=== PATIENT | male | born 1960 | race Two or more races ===

== ENCOUNTER 2018-08-25 16:11 | Emergency (ER) | payer SELFPAY ==
[~2018-08-25] VITALS: Ht 172.7 cm; Wt 72.6 kg
[2018-08-25 16:28] VITALS: BP 140/88
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
[2018-08-25] MEDS ORDERED: ROBAXIN-750750 MG PO (17:02)
[2018-08-25] MEDS ORDERED: LIDODERM700 M1 TOPIC (17:02)
[2018-08-25] MEDS ORDERED: IBUPROFEN600 MG ORAL (17:02)
[2018-08-25 17:21] VITALS: BP 140/88
== END 2018-08-25 17:22 | disposition home or self-care (01) ==
LOC: EMR 16:41
DX: S29.012A Strain of muscle and tendon of back wall of thorax, initial encounter (principal); S39.012A Strain of muscle, fascia and tendon of lower back, initial encounter; V43.52XA Car driver injured in collision with other type car in traffic accident, initial encounter; Y92.410 Unspecified street and highway as the place of occurrence of the external cause; J45.909 Unspecified asthma, uncomplicated
CPT/HCPCS: 99282